=== PATIENT | female | born 1950 | race Hispanic/Latino ===

== ENCOUNTER 2018-07-20 12:04 | Outpatient (CLI) | payer BC | END 2018-07-20 12:05 | disposition home or self-care (01) | LOC: C.RADIC 12:04 ==

== ENCOUNTER 2018-10-04 14:36 | Outpatient (CLI) | payer MEDICARE, OTHER | END 2018-10-04 14:37 | disposition home or self-care (01) | LOC: C.RADIC 14:36 | DX: M54.41 Lumbago with sciatica, right side (principal) ==